=== PATIENT | female | born 1935 | race Caucasian/White ===

== ENCOUNTER 2016-10-01 16:26 | Inpatient (IN) ==
[2016-10-01] MEDS ORDERED: ZOFRAN IV PRN (17:54)
[2016-10-01] MEDS ORDERED: TYLENOL PO PRN (17:54)
[2016-10-01] MEDS ORDERED: SODIUM CHLORIDE 0.9% INJ SCH (18:00)
[2016-10-01 18:47] LABS: HEMATOCRIT 23.2 % (37.0-47.0); MCH 31.8 PG (27-31); MCHC 30.2 g/dL (33-37); MCV 105.5 FL (81-99); MPV 10.6 FL (7.4-10.4); RBC 2.2 XMIL (4.2-5.4)
[2016-10-01 19:06] LABS: ALBUMIN 3.1 g/dL (3.5-5.0); CALCIUM 8.7 mg/dL (8.8-10.2); POTASSIUM 5.2 mmol/L (3.5-5.1); TOTAL BILIRUBIN 0.5 mg/dL (0.20-1.00)
[2016-10-01] MEDS ORDERED: ULTRAM PO PRN (22:05)
[2016-10-01] MEDS: NORCO-10 PO PRN (22:37)
[2016-10-01] MEDS: NS 1,000 ML IV SCH (22:39)
[2016-10-01] MEDS: ROCEPHIN 1 GM/NS 1 GM/50 ML IVPB IV SCH (22:40)
[2016-10-02] MEDS: PROTONIX IV SCH ×2 (01:01→20:49)
[2016-10-02] MEDS: LEVAQUIN 500 MG/D5W 500 MG/100 ML IVPB IV SCH (01:06)
[2016-10-02] MEDS: NEURONTIN PO SCH ×3 (06:09→20:47)
[2016-10-02] MEDS: SYNTHROID PO SCH (06:09)
[2016-10-02] MEDS: APRESOLINE PO SCH ×3 (06:10→20:47)
[2016-10-02 07:12] LABS: HEMATOCRIT 21.6 % (37.0-47.0); HEMOGLOBIN 6.5 g/dL (12.0-16.0); MCH 32.2 PG (27-31); MCHC 30.1 g/dL (33-37); MCV 106.9 FL (81-99); MPV 11.1 FL (7.4-10.4); RBC 2.02 XMIL (4.2-5.4)
[2016-10-02 07:25] LABS: ALBUMIN 2.8 g/dL (3.5-5.0); CALCIUM 8.1 mg/dL (8.8-10.2); MAGNESIUM 1.9 mg/dL (1.5-2.7); POTASSIUM 5.2 mmol/L (3.5-5.1); TOTAL BILIRUBIN 0.3 mg/dL (0.20-1.00); TOTAL PROTEIN 5.1 g/dL (6.3-8.3)
[2016-10-02] MEDS ORDERED: BENADRYL PO ONE (07:57)
[2016-10-02] MEDS ORDERED: LASIX IV SCH (08:00)
[2016-10-02] MEDS: JANUVIA PO SCH (09:36)
[2016-10-02] MEDS: COLACE PO SCH ×2 (09:37→20:47)
[2016-10-02] MEDS: LOVENOX SUBQ SCH (09:37)
[2016-10-02] MEDS: COREG PO SCH ×2 (09:37→20:47)
[2016-10-02] MEDS: NS 1,000 ML IV SCH (09:44)
[2016-10-02] MEDS: COZAAR PO SCH (14:02)
[2016-10-02] MEDS: CELEXA PO SCH (14:02)
[2016-10-02] MEDS: SENOKOT PO SCH (14:02)
[2016-10-02 15:01] LABS: URINE CULTURE PL NEEDED? NO
[2016-10-02 15:12] LABS: BILIRUBIN URINE NEGATIVE (NEGATIVE); BLOOD URINE NEGATIVE (NEGATIVE); CLARITY CLEAR (CLEAR); COLOR YELLOW; LEUKOCYTES URINE TRACE (NEGATIVE); NITRITE URINE NEGATIVE (NEGATIVE); PROTEIN URINE TRACE mg/dL (NEGATIVE); SP GRAVITY URINE 1.015; UROBILINOGEN URINE NORMAL
[2016-10-02 15:17] LABS: URINE EPITHELIAL CELLS <10 /HPF (<10); URINE RBC <10 /HPF (<10); URINE SOURCE CLEAN CATCH; URINE WBC <10 /HPF (<10)
[2016-10-02] MEDS: DURAGESIC 50 MICROGM/HR PATCH TD SCH (20:47)
[2016-10-02] MEDS: NEPHROCAPS PO SCH (20:48)
[2016-10-02] MEDS ORDERED: NORVASC PO SCH (21:00)
[2016-10-02] MEDS: ROCEPHIN 1 GM/NS 1 GM/50 ML IVPB IV SCH (22:33)
[2016-10-03] MEDS: SYNTHROID PO SCH (06:19)
[2016-10-03] MEDS: APRESOLINE PO SCH ×3 (06:19→21:20)
[2016-10-03] MEDS: NEURONTIN PO SCH ×3 (06:19→21:20)
[2016-10-03] MEDS ORDERED: XANAX PO PRN (06:21)
[2016-10-03 06:58] LABS: ALBUMIN 2.8 g/dL (3.5-5.0); CALCIUM 8.6 mg/dL (8.8-10.2); POTASSIUM 4.8 mmol/L (3.5-5.1); TOTAL BILIRUBIN 0.4 mg/dL (0.20-1.00); TOTAL PROTEIN 5.9 g/dL (6.3-8.3)
[2016-10-03 07:02] LABS: HEMATOCRIT 31.2 % (37.0-47.0); HEMOGLOBIN 10.1 g/dL (12.0-16.0); MCH 31.7 PG (27-31); MCHC 32.4 g/dL (33-37); MCV 97.8 FL (81-99); MPV 11.1 FL (7.4-10.4); RBC 3.19 XMIL (4.2-5.4)
--- NOTE | 2016-10-03 08:50 | PROGRESS NOTE ---
DATE: 10/03/2016 SUBJECTIVE: Patient without any new complaints today. Still tired and fatigued. Still weak, having difficulty getting out of bed. Not eating well. OBJECTIVE: Vital Signs Reviewed: Temperature 99 degrees, pulse 87, respiratory rate 18, BP 143/55 to 184/65. General: Patient is awake, alert. She is in no respiratory distress, but she is quite frail in appearance. HEENT: Normocephalic, atraumatic. ZAFAR. Neck: Supple. CV: Regular rate. Chest: Clear. Abdomen: Soft, distended and nontender. No masses. Positive bowel sounds. Extremities: Moves all extremities. LABS: Hemoglobin and hematocrit 10 and 31 after two units of transfusion. Potassium 3.4, albumin 2.8. ASSESSMENT: 1. Severe protein calorie malnutrition unlikely to change. 2. Hyperglycemia, improved. 3. Chronic renal failure with BUN 44.3 and creatinine 3.4 which is her baseline. 4. Hyperkalemia, resolved 5. Anemia of chronic renal disease, improved after 2 units of transfusion. We will saline lock. Continue her home medications. We will increase her Norvasc to 10 to see if this will help with her blood pressure any better. She currently is on Coreg 6.25, but is having heart rates in the 50s and 60s. We will continue hydralazine 50. We will not increase her Cozaar secondary to her renal failure. 6. Diabetes. 7. Presumed pneumonia. She is on Rocephin and Levaquin; we will continue this for now. Chest x- ray pending this morning. Certainly expect patient will need rehab on discharge as she will have a very high risk of readmission. We will begin DNR discussions, as well as hospice discussions with the family. cc: Dhaval Caal MD
[2016-10-03] MEDS: LOVENOX SUBQ SCH (09:30)
[2016-10-03] MEDS: JANUVIA PO SCH (09:30)
[2016-10-03] MEDS: TRICOR PO SCH (09:30)
[2016-10-03] MEDS: COLACE PO SCH ×2 (09:30→21:20)
[2016-10-03] MEDS: COREG PO SCH ×2 (09:30→21:20)
[2016-10-03] MEDS: LEVAQUIN 500 MG/D5W 500 MG/100 ML IVPB IV SCH (09:52)
--- NOTE | 2016-10-03 12:04 | PROGRESS NOTE ---
DATE: 10/02/2016 SUBJECTIVE: Patient states that she is feeling better although she has not gotten out of bed. She is still not eating. Her daughters note that she is still very weak, tired, and has not really changed much from yesterday. OBJECTIVE: Vital Signs: Reviewed. Temperature 99 degrees, pulse 56, respiratory rate 18, BP 128/49. General: Patient is awake, alert. She is currently in no respiratory distress. She is pleasant to talk with. Neck: Supple. CV: Regular rate. Chest: Decreased breath sounds but equal bilaterally. Abdomen: Soft. No masses. No hepatosplenomegaly. Extremities: Moves all extremities. LABS: Hemoglobin and hematocrit 6 and 21. WBCs 10. Potassium 5.2. Creatinine 3.6, albumin 2.8. ASSESSMENT: 1. Moderate protein calorie malnutrition. 2. Anemia of chronic renal disease. 3. Chronic renal disease not on dialysis. 4. Hypothyroidism. 5. Diabetes. 6. Adult failure to thrive. PLAN: Will type and cross, transfuse 2 units. We will continue to follow. Further orders as needed. We will continue her other home medications. We will follow her blood pressures as well as her kidney function. cc: Dhaval Caal MD
[2016-10-03] MEDS: SENOKOT PO SCH (12:20)
[2016-10-03] MEDS: CELEXA PO SCH (12:20)
[2016-10-03] MEDS: COZAAR PO SCH (12:20)
--- NOTE | 2016-10-03 12:39 | HISTORY AND PHYSICAL ---
CHIEF COMPLAINT: Generalized fatigue and weakness. HISTORY OF PRESENT ILLNESS: The patient is an 80-year-old female who presented to the office with her daughters noting that she has had increased fatigue, shortness of breath and increased dyspnea on exertion. Denies any fevers, states overall she has had decreased activity. ALLERGIES: Codeine and penicillin. Penicillin causes a rash. MEDICATIONS: Norvasc, Celexa, hydrocodone p.r.n., Lantus, Zocor, Neurontin, Januvia, and Synthroid. REVIEW OF SYSTEMS: The review of systems and most of the history is per the daughters note. They note that she has had decreased activity and decreased oral intake. She has been more short of breath and fatigued. They have been having to assist more physically with her activities of daily living. Denied any fevers or chills. Denied any real cough or congestion. Deny any GI or issues. FAMILY HISTORY: Noncontributory. SOCIAL HISTORY: Lives at home. Does not smoke or drink. She is , has children who take care of her. PAST MEDICAL HISTORY: Hypertension, hyperlipidemia, diverticulosis, hypothyroidism, diabetes, chronic renal failure, history of hysterectomy, bowel surgery, and hernia repair. PHYSICAL EXAMINATION: Temperature 98, pulse 81, respiratory 164/82, saturation . GENERAL: Patient is awake, alert. She is a frail-appearing, elderly female. HEENT: Normocephalic, atraumatic. ZAFAR. NECK: Supple. CV: Regular rate. Positive systolic murmur. CHEST: Clear. ABDOMEN: Soft, obese. EXTREMITIES: Moves all extremities but generalized weakness. NEUROLOGIC: No focal changes. LABS: Hemoglobin and hematocrit are 7 and 23, WBCs 10. Potassium 5.2. Creatinine 3.6, BUN 45, albumin 3.1. ASSESSMENT: 1. Mild protein calorie malnutrition. 2. Chronic renal failure. 3. Diabetes with hyperglycemia. 4. Anemia of chronic disease. 5. Adult failure to thrive. PLAN: We will admit patient to the hospital. Place her on antibiotics. Recheck her hemoglobin and hematocrit. If it is still low we will type, cross, and transfuse in the a.m. Will get physical therapy involved. cc: Dhaval Caal MD [facility]
--- NOTE | 2016-10-03 15:28 | Diag Imaging Result Doc PS360 ---
EXAM: CHEST-2 VIEWS INDICATION: hypoxia TECHNIQUE: 2 views COMPARISON: 12/25/2014 FINDINGS: There is a small pleural fluid collection at the left lung base. The lungs appear to be grossly clear, otherwise. Cardiac silhouette is mildly prominent but stable. IMPRESSION: Small left pleural effusion. Electronically signed by Sammy Daniel 10/03/2016 3:26 PM
[2016-10-03] MEDS: NORVASC PO SCH (21:20)
[2016-10-03] MEDS: NEPHROCAPS PO SCH (21:21)
[2016-10-03] MEDS: PROTONIX IV SCH (21:26)
[2016-10-03] MEDS: ROCEPHIN 1 GM/NS 1 GM/50 ML IVPB IV SCH (22:07)
[2016-10-04] MEDS: NEURONTIN PO SCH ×3 (06:14→20:36)
[2016-10-04] MEDS: SYNTHROID PO SCH (06:14)
[2016-10-04] MEDS: APRESOLINE PO SCH ×3 (06:14→20:36)
[2016-10-04] MEDS: JANUVIA PO SCH (10:09)
[2016-10-04] MEDS: COLACE PO SCH ×2 (10:09→20:36)
[2016-10-04] MEDS: COREG PO SCH ×2 (10:09→20:36)
[2016-10-04] MEDS: TRICOR PO SCH (10:09)
[2016-10-04] MEDS: LOVENOX SUBQ SCH (10:10)
[2016-10-04] MEDS: MIRALAX PO SCH (10:10)
[2016-10-04] MEDS: LEVAQUIN 500 MG/D5W 500 MG/100 ML IVPB IV SCH (10:10)
[2016-10-04] MEDS: COZAAR PO SCH (14:23)
[2016-10-04] MEDS: SENOKOT PO SCH (14:23)
[2016-10-04] MEDS: CELEXA PO SCH (14:23)
[2016-10-04] MEDS: NEPHROCAPS PO SCH (20:36)
[2016-10-04] MEDS: NORVASC PO SCH (20:36)
[2016-10-04] MEDS: ROCEPHIN 1 GM/NS 1 GM/50 ML IVPB IV SCH (22:25)
[2016-10-05] MEDS: SYNTHROID PO SCH (06:10)
[2016-10-05] MEDS: PROTONIX PO SCH (06:10)
[2016-10-05] MEDS: NEURONTIN PO SCH ×3 (06:10→21:21)
[2016-10-05] MEDS: APRESOLINE PO SCH ×3 (06:10→21:21)
--- NOTE | 2016-10-05 06:24 | PROGRESS NOTE ---
DATE: 10/02/2016 ADDENDUM: 22 minute discussion regarding end of life, current care, current condition, DNR to include intubation was had. Family is discussing and leaning towards DNR. cc: Dhaval Caal MD
[2016-10-05] MEDS: JANUVIA PO SCH (09:06)
[2016-10-05] MEDS: LOVENOX SUBQ SCH (09:06)
[2016-10-05] MEDS: COREG PO SCH ×2 (09:06→21:19)
[2016-10-05] MEDS: COLACE PO SCH ×2 (09:06→21:21)
[2016-10-05] MEDS: MIRALAX PO SCH (09:06)
[2016-10-05] MEDS: TRICOR PO SCH (09:06)
[2016-10-05] MEDS: LEVAQUIN 500 MG/D5W 500 MG/100 ML IVPB IV SCH (10:34)
[2016-10-05] MEDS: COZAAR PO SCH (13:01)
[2016-10-05] MEDS: CELEXA PO SCH (13:01)
[2016-10-05] MEDS: SENOKOT PO SCH (13:01)
--- NOTE | 2016-10-05 18:44 | PROGRESS NOTE ---
DATE: 10/05/2016 SUBJECTIVE: Patient states she is feeling a little bit better. She states she feels a little bit stronger. In fact, notes that she was able to get out of bed yesterday, but still think she needs to go to rehab. OBJECTIVE: Vital signs: Reviewed. She is afebrile. Heart rate stable. Respiratory 22. General: Patient is an elderly female who is in no respiratory distress. She is quite weak in appearance. She is having no current symptoms. Denies any chest pains or palpitations. Still very weak, tired, and fatigued. She was able to get out of bed slightly yesterday, but only with max assist and has not been up today. ASSESSMENT: 1. Adult failure to thrive. 2. Cough, congestion, resolved. 3. Shortness of breath, resolved. 4. Chronic pain. 5. Diabetes. 6. Anxiety, situational. PLAN: We will continue physical therapy. Continue medications. Discussed with the patient again that she will certainly need rehab as she has is a very high readmission risk. She had been getting some physical therapy at home, but this did not improve her symptoms. We will continue to follow and discharge when bed is available to rehab. cc: Dhaval Caal MD
[2016-10-05] MEDS: DURAGESIC 50 MICROGM/HR PATCH TD SCH (21:19)
[2016-10-05] MEDS: NORVASC PO SCH (21:19)
[2016-10-05] MEDS: NORCO-10 PO PRN (21:20)
[2016-10-05] MEDS: NEPHROCAPS PO SCH (21:22)
[2016-10-05] MEDS: ROCEPHIN 1 GM/NS 1 GM/50 ML IVPB IV SCH (22:51)
[2016-10-06] MEDS: NEURONTIN PO SCH ×2 (06:18→12:18)
[2016-10-06] MEDS: PROTONIX PO SCH (06:19)
[2016-10-06] MEDS: APRESOLINE PO SCH ×2 (06:19→12:18)
[2016-10-06] MEDS: SYNTHROID PO SCH (06:19)
[2016-10-06] MEDS ORDERED: LEVAQUIN PO SCH (09:00)
[2016-10-06] MEDS: COLACE PO SCH (09:10)
[2016-10-06] MEDS: COREG PO SCH (09:10)
[2016-10-06] MEDS: MIRALAX PO SCH (09:11)
[2016-10-06] MEDS: JANUVIA PO SCH (09:11)
[2016-10-06] MEDS: LOVENOX SUBQ SCH (09:11)
[2016-10-06] MEDS: TRICOR PO SCH (09:11)
[2016-10-06] MEDS: NORCO-10 PO PRN (12:16)
[2016-10-06] MEDS: CELEXA PO SCH (12:16)
[2016-10-06] MEDS: COZAAR PO SCH (12:18)
[2016-10-06] MEDS: SENOKOT PO SCH (12:18)
--- NOTE | 2016-10-06 12:30 | DISCHARGE SUMMARY ---
ADMISSION DATE: 10/01/2016 DISCHARGE DATE: 10/06/2016 PRIMARY CARE PHYSICIAN: Dr. Dhaval Caal. DIAGNOSES: 1. Failure to thrive in adults. 2. Mild protein calorie malnutrition. 3. Diabetes mellitus with hyperglycemia. 4. Chronic kidney disease. 5. Anemia of chronic disease. 6. Chronic pain. DIAGNOSTICS: 09/23/2016, chest x-ray revealed small left pleural effusion. Lungs appear grossly clear otherwise. A cardiac silhouette is mildly prominent but stable. Ms. Negro presented as a direct admit from Dr. Forman office for increasing fatigue, dyspnea on exertion and shortness of breath with an overall decrease in activity. She denies fever. She was found to have a hemoglobin of 6.5 and hematocrit of 21.6 for which she was transfused 2 units of packed cells with hemoglobin and hematocrit increasing to 10.1 and 31.2. Through the hospitalization she did feel better subjectively. Physical therapy did evaluate the patient and did feel that the patient needed rehab; as the patient was getting physical therapy at home with no improvement in symptoms. She is a very high readmission risk, therefore inpatient rehab is recommended. Her creatinine stayed between 3.3 and 3.6 during the hospitalization, which looking back, her baseline was 3.3 in 2014. Blood sugars ranged from 85 [id number]. PHYSICAL EXAMINATION: Cardiovascular: Regular rate and rhythm, S1, S2 appreciated. Pulmonary: Breath sounds are decreased throughout but equal with equal chest rise and fall bilateral. No increased work of breathing. Gastrointestinal: Abdomen is soft, nontender, nondistended. Bowel sounds in all 4 quadrants. Extremities: No clubbing, cyanosis, or edema. Calves nontender. Pulses are palpable x4. Neurologic: She is awake and alert and oriented x3.. DISCHARGE MEDICATIONS: 1. MiraLAX 17 g daily. 2. Alprazolam 0.5-1 mg b.i.d. p.r.n. 3. Amlodipine 5 mg at bedtime. 4. Neurontin 200 mg t.i.d. 5. Methocarbamol 0.5-1 q.8 hours. 6. Losartan 50 mg with lunch. 7. Celexa 40 mg with lunch. 8. Apresoline 50 mg t.i.d. 9. Colace 100 b.i.d. 10. Coreg 6.25 b.i.d. 11. Fenofibrate 160 daily. 12. Synthroid 50 mcg daily. 13. Januvia 100 mcg daily. 14. Ultram 50 mcg b.i.d. p.r.n. 15. Levaquin 250 mg daily. X 5 days HOSPITAL FOLLOW UP: Dr Caal 2-3 weeks after discharge from rehab. Dictated by ANNIKA Keller for Dhaval Caal MD cc: ANNIKA Keller MD [facility]
[2016-10-06 14:05] VITALS: BP 134/45
[2016-10-06] MEDS ORDERED: ROCEPHIN 1 GM in NS 50 ML IV SCH (16:00)
== END 2016-10-06 14:40 ==
LOC: P.DIRADM 16:26 → P.MEDSURG 17:04
PROVIDERS: ADMIT Family Medicine; ATTEND Family Medicine